=== PATIENT | female | born 1955 | race Asian ===

== ENCOUNTER 2018-05-15 05:49 | Observation (INO) | payer OTHER ==
[2018-05-15] VITALS (8 sets, daily range): BP systolic 100–124; BP diastolic 55–74
[~2018-05-15] VITALS: Ht 182.9 cm; Wt 63.5 kg
[2018-05-15] MEDS ORDERED: MIDAZOLAM HCL/PF 2 MG/2 ML VIAL. IV PRN (06:15)
[2018-05-15] MEDS ORDERED: fentaNYL PF VIAL 100 MCG/2 ML VIAL IV PRN (06:15)
[2018-05-15] MEDS ORDERED: IV RINGERS,LACTATED 1000ML 1,000 ML IV SCH (06:15)
[2018-05-15] MEDS ORDERED: LIDOCAINE 1% PF 2 ML VIAL. ID PRN (06:15)
[2018-05-15] MEDS ORDERED: SIMV20TA3 PO (06:18)
[2018-05-15] MEDS ORDERED: MULT1TAB52 PO (06:18)
[2018-05-15] MEDS ORDERED: CALC600T4 PO (06:19)
[2018-05-15] MEDS ORDERED: VIT1TABL32 PO (06:20)
[2018-05-15] MEDS ORDERED: LIDOCAINE 1% PF 30 ML VIAL. ONE ×2 (06:24→06:25)
[2018-05-15] MEDS ORDERED: ESTROGENS, CONJ VAGINAL CREAM 30GM TUBE. ONE (06:24)
[2018-05-15] MEDS ORDERED: METHYLENE BLUE 1% 10 ML VIAL. ONE (06:24)
[2018-05-15] MEDS ORDERED: EPINEPHrine VIAL 30 MG/30 ML VIAL ONE (07:14)
[2018-05-15] MEDS ORDERED: SEVOFLURANE > 120 MINUTES. IH ONE (07:28)
[2018-05-15] MEDS ORDERED: ONDANSETRON PF 4 MG/2 ML VIAL. ONE (07:29)
[2018-05-15] MEDS ORDERED: GLYCOPYRROLATE 1 MG/5 ML VIAL. ONE (07:29)
[2018-05-15] MEDS ORDERED: DEXAMETHASONE SOD PHOS 20 MG/5 ML VIAL. ONE (07:29)
[2018-05-15] MEDS ORDERED: MIDAZOLAM HCL/PF 2 MG/2 ML VIAL. ONE (07:29)
[2018-05-15] MEDS ORDERED: LIDOCAINE 2% PF Vial for OR 5 ML VIAL. ONE (07:29)
[2018-05-15] MEDS ORDERED: fentaNYL PF VIAL 100 MCG/2 ML VIAL ONE ×2 (07:29→09:52)
[2018-05-15] MEDS ORDERED: PROPOFOL 20 ML IV ONE (07:29)
[2018-05-15] MEDS ORDERED: NEOSTIGMINE METHYLSULFATE 5 MG/5 ML SYRINGE. ONE (07:29)
[2018-05-15] MEDS ORDERED: KETOROLAC 30 MG/ML INJ FOR OR. INJ ONE (07:29)
[2018-05-15] MEDS ORDERED: ROCURONIUM 50 MG/5 ML VIAL. ONE (07:29)
[2018-05-15 07:58] LABS: BASO # 0.1 x10^3/uL (0.0-0.2); BASO % 1 % (0-3); EOS # 0.2 x10^3/uL (0.0-0.7); EOS % 3 % (0-3); HEMATOCRIT 39.8 % (36.0-47.0); HEMOGLOBIN 13.7 g/dL (12.0-15.5); LYMPH # 2.3 x10^3/uL (1.0-4.8); LYMPH % 35 % (24-48); MEAN CORPUSCULAR HEMOGLOBIN 33 pg (25-35); MEAN CORPUSCULAR HGB CONC 34 g/dL (31-37); MEAN CORPUSCULAR VOLUME 95 fL (79-100); MONO # 0.5 x10^3/uL (0.0-1.1); MONO % 8 % (0-9); NEUT # 3.5 x10^3uL (1.8-7.7); NEUT % 53 % (31-73); RED CELL DISTRIBUTION WIDTH 12.5 % (11.5-14.5); WHITE BLOOD COUNT 6.5 x10^3/uL (4.0-11.0)
--- NOTE | 2018-05-15 09:44 | PDOC ---
BRIEF OPERATIVE NOTE Date: May 15, 2018 Pre-Op Diagnosis 1. Incomplete Uterovaginal Prolapse 2. PMB 3. Cystocele 4. HAILY Post-Op Diagnosis Same Procedure Performed TVH, BSO Bladder Sling Anterior Colporrhaphy Surgeon Dr. Rivera Anesthesia Type: General Blood Loss 25 ml Specimens Obtained uterus, cervix, bilateral fallopian tubes and ovaries Findings Incomplete prolapse and HAILY Complications none Operative Note see dictation MERLY RIVERA Jr, MD May 15, 2018 09:44
[2018-05-15] MEDS ORDERED: SIMETHICONE 80 MG TAB.CHEW PO PRN (09:45)
[2018-05-15] MEDS ORDERED: PROCHLORPERAZINE 10 MG/2 ML VIAL. IV PRN (09:45)
[2018-05-15] MEDS ORDERED: 0.9 % SODIUM CHLORIDE 10 ML DISP.SYRIN. IV PRN (09:45)
[2018-05-15] MEDS ORDERED: ONDANSETRON PF 4 MG/2 ML VIAL. IV PRN (09:45)
[2018-05-15] MEDS ORDERED: DEXTROSE 50% 25 GM / 50ML DISP.SYRIN. IV PRN (09:45)
[2018-05-15] MEDS ORDERED: CALCIUM CARBONATE 500 MG TAB.CHEW PO PRN (09:45)
[2018-05-15] MEDS ORDERED: diphenhydrAMINE 50 MG/ML VIAL IV PRN (09:45)
[2018-05-15] MEDS ORDERED: diphenhydrAMINE HCL 25 MG CAPSULE PO PRN (09:45)
[2018-05-15] MEDS ORDERED: ZOLPIDEM 5 MG TABLET. PO PRN (09:45)
[2018-05-15] MEDS: fentaNYL PF VIAL 100 MCG/2 ML VIAL IV PRN ×2 (09:54→10:03)
--- NOTE | 2018-05-15 10:19 | OP ---
DATE OF SURGERY: PREOPERATIVE DIAGNOSES: 1. Incomplete uterovaginal prolapse. 2. Postmenopausal bleeding. 3. Cystocele. 4. Stress urinary incontinence. POSTOPERATIVE DIAGNOSES: 1. Incomplete uterovaginal prolapse. 2. Postmenopausal bleeding. 3. Cystocele. 4. Stress urinary incontinence. PROCEDURE: 1. TVH BSO. 2. Suburethral bladder sling. 3. Anterior colporrhaphy. SURGEON: Merly Rivera MD ANESTHESIA: GETA. ESTIMATED BLOOD LOSS: 25 mL. COMPLICATIONS: None. FINDINGS: Incomplete prolapse and stress urinary incontinence. SUMMARY: A 63-year-old female with postmenopausal bleeding. She was also found to have stress urinary incontinence along with incomplete uterovaginal prolapse. The patient was counseled on risks, benefits and expectations of TVH-BSO, anterior colporrhaphy and suburethral bladder sling placement and voiced a clear understanding to proceed. DESCRIPTION OF PROCEDURE: The patient was taken to surgery suite and placed in dorsal lithotomy position. She was prepped with Betadine solution and draped in a sterile fashion. After adequate anesthesia, weighted speculum and curved Jian placed vaginally. Disha clamps were placed in the anterior and posterior lip of the cervix. Cervix was injected with 1% lidocaine with epinephrine in a circumferential manner. Bovie cautery was utilized to circumscribe the cervix. The vaginal mucosa was dissected away from the lower uterine segment using a moist Ray-Frank and blunt dissection. The parametrial tissue was clamped bilaterally with curved Sil clamps, cut and suture ligated with 2-0 Vicryl suture. Posterior cul-de-sac was entered with curved Lyon scissors. The long weighted speculum was then placed. Uterosacral ligaments and cardinal ligaments were clamped bilaterally, cut and suture ligated. The uteroovarian pedicles were clamped bilaterally, cut and suture ligated. The anterior cul-de-sac was then entered sharply with Metzenbaum scissors. The uterus was then retroverted. The remaining portions of the round ligament and uteroovarian pedicles were clamped, cut and suture ligated. The uterus and cervix were then removed. The right fallopian tube was grasped with a Aparna, and the right infundibulopelvic ligament was clamped with curved Sil clamp, cut, and suture ligated. Same process took place with left adnexa. A modified Hodges culdoplasty was performed incorporating the uterosacral ligaments bilaterally. The remainder of the vaginal cuff was reapproximated using Vicryl suture in lyczpz-ow-[id number] manner. Allis clamp was placed 1 cm below the urethral orifice on the midline of the anterior vaginal wall. A second Allis clamp was placed about 4 cm below the first Allis clamp on the midline of the anterior vaginal wall mucosa. 1% lidocaine with epinephrine was injected between the 2 Allis clamps in a vertical fashion along with periurethral space. Scalpel was utilized to make a vertical incision between 2 Allis clamps. The vaginal mucosa was dissected away from the pubovesical fascia using sharp dissection with Metzenbaum scissors bilaterally as well as blunt dissection using moist Ray-Frank. The periurethral space was dissected all the way to the obturator foramen bilaterally using sharp dissection along with blunt dissection. An incision was made in the left and right lower groin region at the level of the clitoris and where the abductus longus attached to the pubic rami bilaterally. The Obtryx trocar was then placed through the patient's right groin region and guided with my index finger through the periurethral space. The suburethral sling mesh was then attached and the trocar was removed in opposite fashion. Same process took place to the left groin region. Cystoscopy was then performed in which the bladder was normal in appearance. There was no evidence of perforation from the bladder sling placement. The cystoscope was then removed. The sling was then adjusted to a loose fit using a size 7 Hegar dilator. The excess mesh at the groin region was removed with the aid of suture scissors. We then proceeded with anterior colporrhaphy. The pubovesical fascia was reapproximated using 2-0 Vicryl suture in an interrupted fashion. The excess anterior vaginal mucosa was removed with Metzenbaum scissors. The remaining anterior vaginal wall mucosa was reapproximated using 2-0 Vicryl suture in [id number] manner. The groin incisions were reapproximated using Dermabond like substance, Premarin soaked vaginal packing was placed. Mireles catheter was placed, which elicited a small amount of urine. The patient tolerated the procedure well, was sent to recovery room in stable condition. Sponge and needle count correct x 3. MERLY RIVERA MD DR: NITESH/paloma JOB#: [id number] / [id number]
[2018-05-15 11:15] LABS: PLATELET COUNT 200 x10^3/uL (140-400)
[2018-05-15] MEDS: KETOROLAC 30 MG/ML VIAL. IV PRN ×2 (11:52→17:42)
[2018-05-15] MEDS: oxyCODONE/APAP 5/325 1 TAB TABLET PO PRN ×3 (13:12→22:36)
[2018-05-15] MEDS: GABAPENTIN 300 MG CAPSULE. PO SCH ×2 (13:13→22:36)
[2018-05-16 00:50] VITALS: BP 95/55
[2018-05-16 04:44] LABS: BASO % 0 % (0-3); EOS % 0 % (0-3); HEMATOCRIT 31.8 % (36.0-47.0); HEMOGLOBIN 10.8 g/dL (12.0-15.5); LYMPH # 2.4 x10^3/uL (1.0-4.8); LYMPH % 21 % (24-48); MEAN CORPUSCULAR HEMOGLOBIN 32 pg (25-35); MEAN CORPUSCULAR HGB CONC 34 g/dL (31-37); MEAN CORPUSCULAR VOLUME 96 fL (79-100); MONO % 8 % (0-9); NEUT # 8.3 x10^3uL (1.8-7.7); NEUT % 71 % (31-73); PLATELET COUNT 171 x10^3/uL (140-400); RED BLOOD COUNT 3.33 x10^6/uL (3.50-5.40); RED CELL DISTRIBUTION WIDTH 12.6 % (11.5-14.5); WHITE BLOOD COUNT 11.7 x10^3/uL (4.0-11.0)
[2018-05-16 05:15] VITALS: BP 93/57
[2018-05-16] MEDS: GABAPENTIN 300 MG CAPSULE. PO SCH ×2 (05:25→13:46)
[2018-05-16] MEDS: oxyCODONE/APAP 5/325 1 TAB TABLET PO PRN (05:25)
--- NOTE | 2018-05-16 08:19 | DISCH ---
DISCHARGE INSTRUCTIONS Condition on Discharge Condition on Discharge: Stable Activity After Discharge Activity Instructions for Disc: Activity as tolerated Lifting Instructions after Dis: No heavy lifting Driving Instructions after Dis: No driving for 2 weeks Diet after Discharge Diet after Discharge: Regular Contacting the DRSandra after DC Call your doctor for: Concerns you may have Follow-Up Follow up with: Dr. Rivera in 2 weeks. MERLY RIVERA Jr, MD May 16, 2018 08:19
--- NOTE | 2018-05-16 08:19 | PDOC ---
SURGICAL PROGRESS NOTE Subjective Pt. feeling well. Vital Signs Vital Signs Date Time Temp Pulse Resp B/P (MAP) Pulse Ox O2 Delivery O2 Flow Rate FiO2 05/16/18 06:25 18 Room Air 05/16/18 05:15 98.1 58 93/57 (69) 95 98.1 05/15/18 10:24 2 I&O Intake and Output 05/16/18 07:00 Intake Total 3650 ml Output Total 1875 ml Balance 1775 ml Intake Oral 600 ml IV Total 1550 ml Other 1500 ml Output Urine Total 1850 ml Estimated Blood Loss 25 ml General: Alert, Oriented X3, Cooperative HEENT: Atraumatic Lungs: Clear to auscultation Heart: Regular rate Abdomen: Normal bowel sounds, Soft, No tenderness, No masses Psych/Mental Status: Mental status NL Labs Laboratory Tests Test 05/15/18 06:35 05/16/18 04:15 White Blood Count 6.5 x10^3/uL (4.0-11.0) 11.7 x10^3/uL (4.0-11.0) Red Blood Count 4.20 x10^6/uL (3.50-5.40) 3.33 x10^6/uL (3.50-5.40) Hemoglobin 13.7 g/dL (12.0-15.5) 10.8 g/dL (12.0-15.5) Hematocrit 39.8 % (36.0-47.0) 31.8 % (36.0-47.0) Mean Corpuscular Volume 95 fL (79-100) 96 fL (79-100) Mean Corpuscular Hemoglobin 33 pg (25-35) 32 pg (25-35) Mean Corpuscular Hemoglobin Concent 34 g/dL (31-37) 34 g/dL (31-37) Red Cell Distribution Width 12.5 % (11.5-14.5) 12.6 % (11.5-14.5) Platelet Count 200 x10^3/uL (140-400) 171 x10^3/uL (140-400) Neutrophils (%) (Auto) 53 % (31-73) 71 % (31-73) Lymphocytes (%) (Auto) 35 % (24-48) 21 % (24-48) Monocytes (%) (Auto) 8 % (0-9) 8 % (0-9) Eosinophils (%) (Auto) 3 % (0-3) 0 % (0-3) Basophils (%) (Auto) 1 % (0-3) 0 % (0-3) Neutrophils # (Auto) 3.5 x10^3uL (1.8-7.7) 8.3 x10^3uL (1.8-7.7) Lymphocytes # (Auto) 2.3 x10^3/uL (1.0-4.8) 2.4 x10^3/uL (1.0-4.8) Monocytes # (Auto) 0.5 x10^3/uL (0.0-1.1) 1.0 x10^3/uL (0.0-1.1) Eosinophils # (Auto) 0.2 x10^3/uL (0.0-0.7) 0.0 x10^3/uL (0.0-0.7) Basophils # (Auto) 0.1 x10^3/uL (0.0-0.2) 0.0 x10^3/uL (0.0-0.2) Laboratory Tests Test 05/16/18 04:15 White Blood Count 11.7 x10^3/uL (4.0-11.0) Red Blood Count 3.33 x10^6/uL (3.50-5.40) Hemoglobin 10.8 g/dL (12.0-15.5) Hematocrit 31.8 % (36.0-47.0) Mean Corpuscular Volume 96 fL (79-100) Mean Corpuscular Hemoglobin 32 pg (25-35) Mean Corpuscular Hemoglobin Concent 34 g/dL (31-37) Red Cell Distribution Width 12.6 % (11.5-14.5) Platelet Count 171 x10^3/uL (140-400) Neutrophils (%) (Auto) 71 % (31-73) Lymphocytes (%) (Auto) 21 % (24-48) Monocytes (%) (Auto) 8 % (0-9) Eosinophils (%) (Auto) 0 % (0-3) Basophils (%) (Auto) 0 % (0-3) Neutrophils # (Auto) 8.3 x10^3uL (1.8-7.7) Lymphocytes # (Auto) 2.4 x10^3/uL (1.0-4.8) Monocytes # (Auto) 1.0 x10^3/uL (0.0-1.1) Eosinophils # (Auto) 0.0 x10^3/uL (0.0-0.7) Basophils # (Auto) 0.0 x10^3/uL (0.0-0.2) Assessment/Plan A: POD#1 s/p TVH, BSO, Anterior Repair and BLadder Sling P: D/c home after bladder challenge. MERLY VARELA Jr, MD May 16, 2018 08:19
[2018-05-16] MEDS ORDERED: DOCU-109 PO (08:22)
[2018-05-16] MEDS ORDERED: IBUP-1060 PO (08:22)
[2018-05-16] MEDS ORDERED: OXYC1TAB7 PO (08:22)
[2018-05-16 09:10] VITALS: BP 102/61
--- NOTE | 2018-05-19 16:08 | PATHOLOGY ---
[facility] Accession Number: [id number] . 01 Material submitted: . UTERUS AND BILATERAL TUBES AND OVARIES AND PROLAPSED VAGINAL TISSUES . 01 Clinical history: . Cystocele . 02 Diagnosis: Uterus and bilateral fallopian tubes and ovaries, vaginal hysterectomy with bilateral salpingo-oophorectomy: - Squamous hyperplasia and focal mild chronic inflammation of exocervix consistent with prolapse. - Chronic cervicitis with focal squamous metaplasia. - Atrophic endometrium with focal cystic atrophy. - Adenomyosis, uterine corpus, focal. - Leiomyoma, uterine corpus, subserosal. - Involutional changes and cystic Walthard rests of bilateral fallopian tubes. - Involutional changes of bilateral ovaries. Segments of vaginal mucosa, anterior repair: - Focal squamous hyperplasia and chronic inflammation. [facility]/05/19/2018 . 02 Comment: There is no atypia or evidence of malignancy. . (JPM:mml; 05/19/18) . 02 Electronically signed: . Dawson Ross MD, Pathologist NPI- [id number] . 01 Gross description: . The specimen is received in formalin, labeled "Fadia Whalen, uterus and bilateral tubes and ovaries and prolapsed vaginal tissue" and consists of a uterus with attached cervix (9.1 x 5.4 x 3.3 cm) weighing 98 g. There are separate bilateral fimbriated fallopian tubes with attached ovaries. The first has a suture (no designation provided) with the fimbriated fallopian tube (4.5 cm in length and 0.5 cm in diameter) attached to a yellow-summers and smooth ovary (2.5 x 1.6 x 0.5 cm) which weighs 1 g. The second fimbriated fallopian tube (4.5 cm in length and 0.5 cm in diameter) is attached to a white-summers and smooth to granular ovary (3.0 x 1.0 x 0.6 cm). The uterine serosa is summesr and shiny with multifocal hemorrhage. The slit-like 1.4 cm cervical os is surrounded by glistening pink-summers ectocervix. The uterus is bivalved to reveal a pink-summers and grooved endocervical canal measuring 2.8 cm. The endometrial cavity is triangular (4.4 cm in length by 2.7 cm in diameter) which is lined by hemorrhagic endometrium measuring less than 0.1 cm. Further serial sectioning reveals a pink-summers myometrium measuring up to 1.9 cm containing a single anterior subserosal nodule (0.6 x 0.5 cm). The cut surfaces are white, whorled, and homogenous without hemorrhage or necrosis. . The sutured fimbriated fallopian tube is spann-summers with multiple paratubal cysts ranging from 0.1-0.4 cm and sectioning reveals no gross lesions. Sectioning the first attached ovary reveals multiple corpora albicantia and no masses or lesions. The non-sutured fimbriated fallopian tube is spann-summers and focally dusky with multiple paratubal cysts ranging from 0.1-0.3 cm and sectioning reveals no gross lesions. Sectioning the second ovary reveals multiple corpora albicantia and no nodules or lesions. . Also received are 2 segments of spann-summers vaginal mucosa measuring 4.3 x 1.6 x 0.5 cm and 3.8 x 1.6 x 0.5 cm. There are no gross lesions and telesales representative sections are submitted as follows: . A1: Anterior cervix A2: Posterior cervix A3: Anterior endomyometrium A4: Posterior endomyometrium A5: Serosal hemorrhage A6: Nodule A7: Sutured fimbriated fallopian tube A8: Ovary attached to sutured fallopian tube A9: Second described fallopian tube A10: Second described ovary A11: Vaginal mucosa additionally received (SDY; 05/16/2018) SYU/SYU . 02 Pathologist provided ICD-10: N81.4, D25.2, N72 . 02 CPT . 814708 Performed at: [address], [place], [place] [id number] MD Nelson Pritchett MD Phone: [phone] Performed at: 02 [facility] [address] [place], [place] [id number] MD Dawson Ross MD Phone: [phone]
== END 2018-05-16 14:29 | disposition home or self-care (01) ==
LOC: SURG 05:49 → 3 NORTH 10:15
PROVIDERS: ADMIT Obstetrics & Gynecology; ATTEND Obstetrics & Gynecology
DX: D25.2 Subserosal leiomyoma of uterus (principal); N95.0 Postmenopausal bleeding; N39.3 Stress incontinence (female) (male); N81.10 Cystocele, unspecified; N80.0 Endometriosis of uterus
CPT/HCPCS: 36415; 57240; 57288; 58260; 85025; 86850; 86900; 86901; 96374; 96376; G0378; G0379; J0171; J0690; J1100; J1885; J2001; J2250; J2405; J2704; J2710; J3010; J3490; J7030; J7120; 88305; A7015; Q9968; C1771